=== PATIENT | female | born 1985 | race American Indian/Alaskan Native ===

== ENCOUNTER 2016-11-20 13:50 | Emergency (ER) | payer MEDICAID, OTHER ==
[2016-11-20 13:59] VITALS: BP 123/88; PULSE 112; RESP 18; TEMP 98.5; O2SAT 100
--- NOTE | 2016-11-20 14:12 | C.PDOC ---
History Of Present Illness 31 y/o female presents to ED requesting alcohol detox. Pt drinks 1 pint of vodka a day. Last drink was approximately 20 minutes ago. Pt is requesting work note. Otherwise, denies any SI, HI, or any other physical complaints at this time. Time Seen by Provider: 11/20/16 14:09 Chief Complaint (Nursing): Substance Abuse History Per: Patient History/Exam Limitations: no limitations Onset/Duration Of Symptoms: Gradual Current Symptoms Are (Timing): Still Present Suicide/Self Injury Attempted (Context): None Modifying Factor(s): Alcohol Severity: None Pain Scale Rating Of: 0 Associated Symptoms: denies: Suicidal Thoughts, Suicidal Plan Involuntary Hold By: None Recent travel outside of the [place]: No Additional History Per: Patient Past Medical History Reviewed: Historical Data, Nursing Documentation, Vital Signs Vital Signs: Last Vital Signs Temp 98.5 F 11/20/16 13:55 Pulse 112 H 11/20/16 13:55 Resp 18 11/20/16 13:55 BP 123/88 11/20/16 13:55 Pulse Ox 100 11/20/16 14:13 - Medical History PMH: No Chronic Diseases - re3D Procedures INJECT HORMONE NEC (09/26/13) MANUAL ASSIST DELIV NEC (09/26/13) MANUAL REMOVAL-PLACENTA (09/26/13) REPAIR OB LACERATION NEC (09/26/13) Family History: States: No Known Family Hx - Social History Hx Alcohol Use: Yes Hx Substance Use: No - Immunization History Hx Tetanus Toxoid Vaccination: Yes Hx Influenza Vaccination: No Review Of Systems Except As Marked, All Systems Reviewed And Found Negative. Constitutional: Negative for: Fever, Chills Cardiovascular: Negative for: Chest Pain, Palpitations Respiratory: Negative for: Cough, Shortness of Breath Gastrointestinal: Negative for: Nausea, Vomiting, Abdominal Pain Skin: Negative for: Rash, Bruising Neurological: Negative for: Headache, Dizziness Psych: Negative for: Suicidal ideation Physical Exam - Physical Exam Appears: Non-toxic, No Acute Distress, Other (tall thin black girl) Skin: Normal Color, Warm, Dry Head: Atraumatic, Normacephalic Eye(s): bilateral: Normal Inspection Oral Mucosa: Moist Cardiovascular: Rhythm Regular, No Murmur Respiratory: Normal Breath Sounds, No Rales, No Rhonchi, No Wheezing Gastrointestinal/Abdominal: Soft, No Tenderness Extremity: Bilateral: Atraumatic, Normal ROM Neurological/Psych: Oriented x3, Normal Speech ED Course And Treatment O2 Sat by Pulse Oximetry: 100 (on RA) Pulse Ox Interpretation: Normal Medical Decision Making Medical Decision Making: seeking etoh detox, not available today no acute emergencies referred to opt services for f/u and detox as a pre-screen Disposition Doctor Will See Patient In The: Office Counseled Patient/Family Regarding: Studies Performed, Diagnosis - Disposition Referrals: [facility] [Outside] [facility] [Outside] [facility] [Outside] [facility] [Outside] Disposition: HOME/ ROUTINE Disposition Time: 14:13 Condition: GOOD Additional Instructions: please follow-up with our outpatient services to arrange alcohol detox as a PRE SCREENED pt. Instructions: Abuse of Alcohol (ED) Forms: [facility] (Mongolian), Work Excuse - Clinical Impression Clinical Impression: Alcohol abuse - Scribe Statement The provider has reviewed the documentation as recorded by the Scribe Viji Campbell All medical record entries made by the Prasadibe were at my direction and personally dictated by me. I have reviewed the chart and agree that the record accurately reflects my personal performance of the history, physical exam, medical decision making, and the department course for this patient. I have also personally directed, reviewed, and agree with the discharge instructions and disposition.
== END 2016-11-20 14:32 | disposition home or self-care (01) ==
LOC: C.ER 13:50
DX: F10.10 Alcohol abuse, uncomplicated (principal)